=== PATIENT | male | born 1990 | race Caucasian/White ===

== ENCOUNTER 2020-07-23 18:52 | Emergency (ER) | payer OTHER ==
[~2020-07-23] VITALS: Ht 170.2 cm; Wt 65.8 kg
[2020-07-23] MEDS ORDERED: ACETAMINOPHEN650 M2 PO (23:08)
[2020-07-23] MEDS ORDERED: PEPCID20 MG PO (23:08)
[2020-07-23] MEDS ORDERED: INTESTINEX680 M2 PO (23:08)
== END 2020-07-23 23:52 | disposition home or self-care (01) ==
LOC: ER 18:52
DX: K52.89 Other specified noninfective gastroenteritis and colitis (principal); J02.9 Acute pharyngitis, unspecified; B34.9 Viral infection, unspecified; Z03.818 Encounter for observation for suspected exposure to other biological agents ruled out

== ENCOUNTER 2020-08-28 15:38 | Emergency (ER) | payer OTHER ==
[~2020-08-28] VITALS: Ht 170.2 cm; Wt 74.4 kg
[~2020-08-28 15:38] MED LIST: ACETAMINOPHEN650 M2 PO; INTESTINEX680 M2 PO; PEPCID20 MG PO
[2020-08-28] MEDS ORDERED: ACETAMINOPHEN650 M2 PO (18:41)
[2020-08-28] MEDS ORDERED: MUCINEX FAST-M1 EAC6 PO (18:41)
== END 2020-08-28 19:48 | disposition home or self-care (01) ==
LOC: ER 15:38
DX: J06.9 Acute upper respiratory infection, unspecified (principal); R42 Dizziness and giddiness; B34.9 Viral infection, unspecified; Z03.818 Encounter for observation for suspected exposure to other biological agents ruled out